=== PATIENT | male | born 1960 | race Caucasian/White ===

== ENCOUNTER 2019-01-02 15:45 | Emergency (ER) | payer MEDICAID ==
[~2019-01-02] VITALS: Ht 177.8 cm; Wt 83.9 kg
[2019-01-02 15:45] VITALS: BP_SYST 129
--- NOTE | 2019-01-02 15:45 | NUR ---
BROUGHT BACK TO BED #3 AND TRIAGED, REPORT GIVEN TO SUSIE
[2019-01-02] MEDS ORDERED: KETOROLAC TROMETHAMINE 60 MG/2 ML VIAL IM ONE (16:00)
--- NOTE | 2019-01-02 16:04 | NUR ---
LYNETTE Vences examining patient.
--- NOTE | 2019-01-02 16:10 | NUR ---
Patient presented to ER with C/O left shoulder pain. PAtient A&Ox4, afebrile, skin pink and warm, ambulatory to ER, pain 8/, denies N/V/D. Patient C/O left shoulder pain since this morning. Patient states no trauma, no injury sustained to left shoulder. Patient states he has HX HTN
[2019-01-02] MEDS ORDERED: HYDROcodone/ACETAMIN 7.5-325 MG TAB PO ONE (16:15)
[2019-01-02 17:25] VITALS: BP_SYST 128
--- NOTE | 2019-01-02 17:25 | NUR ---
Patient given written and verbal discharge instructions and verbalizes understanding. ER MD discussed with patient the results and treatment provided. Patient in stable condition. ID arm band removed. Rx of given. Patient educated on pain management and to follow up with PMD. Pain Scale6/10 tolerable for patient . Opportunity for questions provided and answered.
== END 2019-01-02 17:25 | disposition home or self-care (01) ==
LOC: SED 15:45
DX: S46.002A Unspecified injury of muscle(s) and tendon(s) of the rotator cuff of left shoulder, initial encounter (principal); X50.3XXA Overexertion from repetitive movements, initial encounter; Y93.89 Activity, other specified; Y92.61 Building [any] under construction as the place of occurrence of the external cause; Y99.0 Civilian activity done for income or pay
CPT/HCPCS: 73030; 96372; 99283; J1885